=== PATIENT | female | born 1990 | race Caucasian/White ===

== ENCOUNTER 2018-07-02 11:23 | Emergency (ER) | payer OTHER ==
[~2018-07-02] VITALS: Ht 167.6 cm; Wt 86.8 kg
[2018-07-02 11:39] VITALS: Ht 167.6 cm; Wt 86.8 kg
[2018-07-02 12:23] VITALS: BP 134/82
== END 2018-07-02 12:23 | disposition home or self-care (01) ==
LOC: ED 11:23
DX: R10.13 Epigastric pain (principal)
CPT/HCPCS: J1885